=== PATIENT | male | born 1960 | race Two or more races ===

== ENCOUNTER 2020-11-25 09:32 | Outpatient (REF) | payer MEDICARE, MEDICAID, SELFPAY ==
--- NOTE | ~2020-11-25 | XR_ITS ---
EXAMINATION: XR SHOULDER, RIGHT CLINICAL INFORMATION: Pain. COMPARISON: Right shoulder MRI dated 08/16/2020. TECHNIQUE: AP, Grashey, and axillary views of the right shoulder. FINDINGS: Moderate acromioclavicular osteoarthritis. No significant glenohumeral joint space narrowing or marginal osteophytes. No osseous erosion. No fracture or dislocation. No abnormal soft tissue calcification. XR/XR shoulder RT min 2V IMPRESSION: Moderate acromioclavicular osteoarthritis, similar when compared to the prior MRI.
== END 2020-11-25 09:33 | disposition home or self-care (01) ==
LOC: HO.HOSX 09:32
PROVIDERS: Visit Provider Orthopaedic Surgery
DX: M25.511 Pain in right shoulder (principal)
CPT/HCPCS: 73030

== ENCOUNTER → 2020-11-28 13:03 | Outpatient (BNVA) | payer MEDICARE, MEDICAID, SELFPAY | PROVIDERS: Visit Provider Orthopaedic Surgery | DX: M75.101 Unspecified rotator cuff tear or rupture of right shoulder, not specified as traumatic (principal); E78.00 Pure hypercholesterolemia, unspecified; Z91.013 Allergy to seafood | CPT/HCPCS: 99202 ==

== ENCOUNTER 2020-12-25 06:03 | Day surgery (SDC) | payer MEDICARE, MEDICAID, SELFPAY ==
[2020-12-18 10:15] VITALS: BMI 28.7
--- NOTE | 2020-12-24 08:12 | HO.ANESPROP2 ---
Documented by User: Jacklyn Weinberg 12/24/20 08:15 HPI - Anesthesia Eval Consult details Narrative: 60yo F for Right Arthroscopic Rotator Cuff Repair PMFSH Past Medical History Medical History Anxiety Asthma COVID-19 vaccine series completed GERD (gastroesophageal reflux disease) High cholesterol HTN (hypertension) Low back pain Prediabetes Smoker Surgical History Surgical History Hx of colonoscopy Social History Social History (Updated 12/25/20 @ 08:01 by Deborah Niño) Alcohol intake: current Alcohol intake frequency: does not drink Patient Tobacco Use Status: Current everyday Tobacco user Tobacco use type: Cigarette Cigarettes Per Day: 5 Years Smoked: 50 Smoked in Last 30 Days: Yes Are you DNR?: No Advance Directives: No Advance Directives Information Provided: No Advance Directives on File: No Current occupational status: unemployed and disabled Current occupation: left handed Meds Allergies Allergy/AdvReac Type Severity Reaction Status Date / Time shellfish derived Allergy Anaphylaxis Verified 12/18/20 10:13 shrimp Allergy Anaphylaxis Verified 12/18/20 10:13 Home Medications Medication Instructions Recorded Confirmed Last Taken Type albuterol sulfate 90 mcg/actuation 1 puff INHALATION Q4-6H PRN 11/25/20 12/18/20 Unknown History aerosol inhaler atorvastatin 80 mg tablet 80 mg PO BEDTIME 11/25/20 12/18/20 12/25/20 History diclofenac sodium 1 % topical gel TOPICAL 11/25/20 Unknown History dulaglutide 0.75 mg/0.5 mL mg SUBCUT 11/25/20 Unknown History subcutaneous pen injector fluconazole 150 mg tablet mg PO 11/25/20 Unknown History hydroxyzine HCl 50 mg tablet mg PO 11/25/20 Unknown History ibuprofen 600 mg tablet mg PO 11/25/20 Unknown History lisinopril 40 mg tablet mg PO 11/25/20 12/25/20 History metformin 1,000 mg tablet 1,000 mg PO BID 11/25/20 12/18/20 12/25/20 History metoprolol succinate 50 mg 50 mg PO QAM 11/25/20 12/25/20 History tablet,extended release 24 hr naproxen 500 mg tablet 500 mg PO BID PRN 11/25/20 12/18/20 Unknown History omeprazole 20 mg capsule,delayed 20 mg PO DAILY 11/25/20 12/18/2021 History release tramadol 50 mg tablet 50 mg PO QID PRN 11/25/20 12/18/20 Unknown History Exam Exam Date and Time: December 24, 2020811 Height,Weight and Vital Signs: Height 5 ft 6 in Weight 80.739 kg Documented by User: Deborah Niño 12/25/20 08:03 COUNT INCLUDES THE [facility] Past Medical History Medical History Anxiety Asthma COVID-19 vaccine series completed GERD (gastroesophageal reflux disease) High cholesterol HTN (hypertension) Low back pain Prediabetes Smoker Family History Family history of problems with anesthesia: No Surgical History Surgical History Hx of colonoscopy History of Problems with Anesthesia: No Social History Social History (Updated 12/25/20 @ 08:01 by Deborah Niño) Alcohol intake: current Alcohol intake frequency: does not drink Patient Tobacco Use Status: Current everyday Tobacco user Tobacco use type: Cigarette Cigarettes Per Day: 5 Years Smoked: 50 Smoked in Last 30 Days: Yes Are you DNR?: No Advance Directives: No Advance Directives Information Provided: No Advance Directives on File: No Current occupational status: unemployed and disabled Current occupation: left handed Meds Allergies Allergy/AdvReac Type Severity Reaction Status Date / Time shellfish derived Allergy Anaphylaxis Verified 12/18/20 10:13 shrimp Allergy Anaphylaxis Verified 12/18/20 10:13 Home Medications Medication Instructions Recorded Confirmed Last Taken Type albuterol sulfate 90 mcg/actuation 1 puff INHALATION Q4-6H PRN 11/25/20 12/18/20 Unknown History aerosol inhaler atorvastatin 80 mg tablet 80 mg PO BEDTIME 11/25/20 12/18/20 12/25/20 History diclofenac sodium 1 % topical gel TOPICAL 11/25/20 Unknown History dulaglutide 0.75 mg/0.5 mL mg SUBCUT 11/25/20 Unknown History subcutaneous pen injector fluconazole 150 mg tablet mg PO 11/25/20 Unknown History hydroxyzine HCl 50 mg tablet mg PO 11/25/20 Unknown History ibuprofen 600 mg tablet mg PO 11/25/20 Unknown History lisinopril 40 mg tablet mg PO 11/25/20 12/25/20 History metformin 1,000 mg tablet 1,000 mg PO BID 11/25/20 12/18/20 12/25/20 History metoprolol succinate 50 mg 50 mg PO QAM 11/25/20 12/25/20 History tablet,extended release 24 hr naproxen 500 mg tablet 500 mg PO BID PRN 11/25/20 12/18/20 Unknown History omeprazole 20 mg capsule,delayed 20 mg PO DAILY 11/25/20 12/18/20 12/25/20 History release tramadol 50 mg tablet 50 mg PO QID PRN 11/25/20 12/18/20 Unknown History Exam Height,Weight and Vital Signs: Vital Signs Temp Pulse Resp BP Pulse Ox 12/25/20 06:29 97.4 F 73 18 138/75 97 Pertinent Lab Results Pertinent Lab Results: Lab Results 12/25/20 Range/Units 06:35 POC Glucose 136 H (60-115) mg/dL Narrative Narrative: Hyperesthesia right shoulder Airway Mallampati Class: II TM Dist: >3cm Neck ROM: Full Loose/Missing/Broken Teeth: Yes (Missing back) Heart: RRR Lungs: CTAB Assessment and Plan Assessment Anesthesia Assessment: Anesthesia Plan Discussed and Chart Reviewed Final Anesthetic Review NPO: Yes ASA Class: II Final Preanesthetic Review: No Changes in Pt Med Stat, Meds/Allgs Chart Reviewed, Consent Obtained/Reviewed and Anes Risks/Benef Reviewed Patient Risk: Low Procedure Risk: Intermediate Assessment/Block/Sedation in SS: Assess/Block/Sedation-SS Anesthetic Plan Anesthetic Plan: GA and Regional Block (Interscalene) Disposition: Standard PACU
[2020-12-25] VITALS (10 sets, daily range): BP systolic 90–138; BP diastolic 38–75; PULSE 64–75; RESP 14–20; TEMP 36.1–36.3; O2SAT 92–98
[2020-12-25 06:39] LABS: Glucose, Whole Blood 136 mg/dL (60-115)
[2020-12-25] MEDS: Lactated Ringers 1,000 ML 100 ML IVCONT (06:47)
--- NOTE | 2020-12-25 07:23 | MHC.SHP ---
Pre-Procedural Eval Section A The patient is an INPATIENT: No Changes since office visit: Yes Patient answered all questions; No Cold of Flu in the past 2 weeks, No New Medical Problems and No Changes in Medication The History & Physical has been completed within 30 days and I have reviewed it.: Yes Section B Chief Complaint: rotator cuff tear Allergies: Allergies Allergy/AdvReac Type Severity Reaction Status Date / Time shellfish derived Allergy Anaphylaxis Verified 12/18/20 10:13 shrimp Allergy Anaphylaxis Verified 12/18/20 10:13 Plan I have reviewed the history and physical and performed a pertinent physical examination on my patient. No changes have occurred unless specified.
--- NOTE | 2020-12-25 10:25 | PM.OP ---
Brief Operative Note Date of Service: 12/25/20 Pre-op diagnosis: right rtc tear Post-op diagnosis: same Procedure: right rtc repair Implants: lozada and nephew halcoil double loaded suture anchor x 2 and helacoil knotless x2 Surgeon: Lucien Burnett MD Anesthesia: GLMA and regional Was an Laborer Brooder Farm used for this Procedure?: Yes Laborer Brooder Farm: Tennille Rivera Estimated blood loss (mL): 10 IV fluids (mL): 1,100 Pathology: none sent Condition: stable Disposition: PACU
[2020-12-25] MEDS: ondansetron HCL 4 MG/2 ML VIAL IVPUSH (11:22)
--- NOTE | 2020-12-26 16:53 | W.PM.OPN ---
Operative Note Operative Note Date of Service: 12/25/20 Narrative: Pre-op diagnosis: right rtc tear Post-op diagnosis: same Procedure: right rtc repair Implants: lozada and nephew halcoil double loaded suture anchor x 2 and helacoil knotless x2 Surgeon: Lucien Burnett MD Anesthesia: GLMA and regional Was an Data Processing Operator used for this Procedure?: Yes Data Processing Operator: Tennille Rivera Estimated blood loss (mL): 10 IV fluids (mL): 1,100 Pathology: none sent Condition: stable Disposition: PACU Patient was brought to the operating room and placed in the beach chair position on the surgical table. He was prepped and draped in standard sterile fashion and a time out was called to indentify proper site, proper procedure and IV antibiotics per weight were administered. I began by making a posterolateral stab incision with a 15 blade. A blunt trochar was placed into the glenohumeral joint and I insufflated the joint with saline and a 30 degree arthroscope was placed. I established an outside- in anterior portal just distal to the biceps tendon. I then began my inspection of the glenohumeral joint. The cartilage surfaces were clean. The biceps anchor and labrum was also pristine and the inferior gutter was clean. There was a visible undersurface rotator tear. I established an outside in anterior portal just distal to the biceps tendon and used a probe here. I then removed the trochar and entered the subacromial space. A direct lateral portal was then established and I performed a bursectomy. The cuff was then examined. There was a full-thickness tear of the supraspinatus involving the anterior fibers of the infraspinatus. A 2 lateral portals were established under direct visualization and 2 medial row Healicoil anchors were placed and then these were fed through the rotator cuff with the scorpion and using Crossbridge technique loaded into 2 knotless suture anchors laterally. Prior to this I eburnated the footprint down to bleeding bone. I had excellent compression of the cuff and I was happy with the repair. A 5 mm subacromial decompression was then performed. Once I was happy with the final photographs all instrumentation was removed and portals were closed with nylon. Patient was placed in sterile dressing extubated brought to recovery room stable condition there were no known complications.
== END 2020-12-25 13:55 | disposition home or self-care (01) ==
PROVIDERS: Visit Provider Orthopaedic Surgery
PROC: (CPT 29827; principal; 2020-12-25 07:30)
DX: M75.121 Complete rotator cuff tear or rupture of right shoulder, not specified as traumatic (principal); J45.909 Unspecified asthma, uncomplicated; I10 Essential (primary) hypertension; R73.03 Prediabetes; Z79.84 Long term (current) use of oral hypoglycemic drugs; Z79.899 Other long term (current) drug therapy; F17.210 Nicotine dependence, cigarettes, uncomplicated
CPT/HCPCS: 29827; 29826; 82947; C1713; J0171; J0690; J1100; J2250; J2405; J3010

== ENCOUNTER 2020-12-27 10:28 | Emergency (ER) | payer MEDICARE, MEDICAID, SELFPAY ==
[2020-12-27 10:30] VITALS: BP 151/86; PULSE 81; RESP 17; TEMP 36.6; O2SAT 98; BMI 28.8
--- NOTE | 2020-12-27 10:38 | ED.WOUNDLAC ---
HPI - Wound/Laceration General Chief Complaint: Wound/Laceration Stated Complaint: dressing change Time Seen by Provider: 12/27/20 10:34 Source: patient Mode of arrival: ambulatory Limitations: no limitations History of Present Illness HPI narrative: 60 y/o presents to the ER from home on POD#2 from a right rotator cuff repair by Dr. Burnett requesting a dressing change. He states there is blood dressing under the surgical foam and it wants it changed. He is afraid of it getting infected. He reports ongoing severe pain in his shoulder since the surgery. He is due to see Dr. Burnett in 2 weeks. He did not call the office today with his dressing concerns. He denies fevers. Onset (ago): day(s) (2) Extremity Location: right: shoulder Patient tetanus UTD: Yes Context: other (recent surgery) Associated symptoms: pain Treatments prior to arrival: bandage Related Data Home Medications Medication Instructions Recorded Confirmed albuterol sulfate 90 mcg/actuation 1 puff INHALATION Q4-6H PRN 11/25/20 12/18/20 aerosol inhaler atorvastatin 80 mg tablet 80 mg PO BEDTIME 11/25/20 12/18/20 diclofenac sodium 1 % topical gel TOPICAL 11/25/20 dulaglutide 0.75 mg/0.5 mL mg SUBCUT 11/25/20 subcutaneous pen injector fluconazole 150 mg tablet mg PO 11/25/20 hydroxyzine HCl 50 mg tablet mg PO 11/25/20 lisinopril 40 mg tablet mg PO 11/25/20 metformin 1,000 mg tablet 1,000 mg PO BID 11/25/20 12/18/20 metoprolol succinate 50 mg 50 mg PO QAM 11/25/20 tablet,extended release 24 hr naproxen 500 mg tablet 500 mg PO BID PRN 11/25/20 12/18/20 omeprazole 20 mg capsule,delayed 20 mg PO DAILY 11/25/20 12/18/20 release Previous Rx's Medication Instructions Recorded oxycodone [OxyContin] 10 mg PO Q12H 3 Days #6 tab 12/25/20 oxycodone [OxyContin] 10 mg PO Q12H 3 Days #6 tab 12/25/20 oxycodone-acetaminophen [Percocet] 1 tab PO Q4-6H PRN #42 tab 12/25/20 oxycodone-acetaminophen [Percocet] 1 tab PO Q6H PRN 7 Days #42 tab 12/25/20 Allergies Allergy/AdvReac Type Severity Reaction Status Date / Time shellfish derived Allergy Anaphylaxis Verified 12/18/20 10:13 shrimp Allergy Anaphylaxis Verified 12/18/20 10:13 Review of Systems Review of Systems: Constitutional: No Fever, No Chills Gastrointestinal: No Nausea, No Vomiting Musculoskeletal: + joint pain, + Myalgias Skin: No Skin Lesions, No rash Neuro: No Weakness, No Numbness Heme/Lymph: + Bruising, No Lymphadenopathy PMFSH Past Medical History Attestation statement: The following information was validated with the patient. Medical History Anxiety Asthma COVID-19 vaccine series completed GERD (gastroesophageal reflux disease) High cholesterol HTN (hypertension) Low back pain Prediabetes Smoker Surgical History Hx of colonoscopy Social History Social History (Updated 12/25/20 @ 08:01 by Deborah Niño) Alcohol intake: current Alcohol intake frequency: does not drink Patient Tobacco Use Status: Current everyday Tobacco user Tobacco use type: Cigarette Cigarettes Per Day: 5 Years Smoked: 50 Current occupational status: unemployed and disabled Current occupation: left handed Physical Exam Vital Signs: Vital Signs: Last Vital Signs Temp 98 F 12/27/20 10:30 Pulse 81 12/27/20 10:30 Resp 17 12/27/20 10:30 BP 151/86 H 12/27/20 10:30 Pulse Ox 98 12/27/20 10:30 Body Mass Index 28.8 Appearance: Alert. Oriented X3. No acute distress. HEENT: normal inspection CVS: Normal heart rate and rhythm. Pulses normal. Respiratory: No respiratory distress. Skin: Skin warm and dry. Normal skin color. Normal skin turgor. No rashes. Extremities: right shoulder with 3 large strips of post-op surgical foam dressing covering anterior, superior and posterior portions, anterior portion is slightly loose and under the foam is blood soaked gauze, no purulent drainage. ecchymosis of anterior shoulder and right axillary area. NV intact distally Neuro: Oriented X 3. No motor deficit. No sensory deficit. Course Course Course Narrative: 60 y/o male POD 2 from rotattor cuff repair presenting for dressing change. Spoke with KLARISSA Null in the clinic who would like to see the patient in the office for dressing change as they have all of the specialized supplies for this. Patient instructed to go to [address] directly from here. Stable for d/c to ortho clinic Discharge Plan Discharge Clinical Impression: Change of dressing Patient Disposition: Home, Self-Care Additional Instructions: Go to [address] to the Orthopedic Clinic for a dressing change, they have all the supplies there and are expecting you Prescriptions: No Action oxycodone [OxyContin] 10 mg tablet,oral only,ext.rel.12 hr 10 mg PO Q12H 3 Days Qty: 6 RF: 0 oxycodone-acetaminophen [Percocet] 5-325 mg tablet 1 tab PO Q6H PRN (Reason: pain) 7 Days Qty: 42 RF: 0 oxycodone [OxyContin] 10 mg tablet,oral only,ext.rel.12 hr 10 mg PO Q12H 3 Days Qty: 6 RF: 0 oxycodone-acetaminophen [Percocet] 5-325 mg tablet 1 tab PO Q4-6H PRN (Reason: pain) Qty: 42 RF: 0 dulaglutide 0.75 mg/0.5 mL pen injector subcut RF: 0 fluconazole 150 mg tablet PO RF: 0 naproxen 500 mg tablet 500 mg PO BID PRN (Reason: Pain) RF: 0 albuterol sulfate 90 mcg/actuation HFA aerosol inhaler 1 puff inhalation Q4-6H PRN (Reason: Shortness Of Breath Or Wheezing) RF: 0 metformin 1,000 mg tablet 1,000 mg PO BID RF: 0 atorvastatin 80 mg tablet 80 mg PO BEDTIME RF: 0 metoprolol succinate 50 mg tablet extended release 24 hr 50 mg PO QAM RF: 0 lisinopril 40 mg tablet PO RF: 0 omeprazole 20 mg capsule,delayed release(DR/EC) 20 mg PO DAILY RF: 0 hydroxyzine HCl 50 mg tablet PO RF: 0 diclofenac sodium 1 % gel topical RF: 0 Interventions: ED Discharge Assessment Last Done: 12/27/20 11:00 Discharge Date/Time: 12/27/20 11:03
== END 2020-12-27 11:03 | disposition home or self-care (01) ==
PROVIDERS: Emergency Provider Emergency Medicine
DX: Z48.01 Encounter for change or removal of surgical wound dressing (principal)
CPT/HCPCS: 99212; 99283

== ENCOUNTER → 2020-12-30 13:56 | Outpatient (BNVA) | payer MEDICARE, MEDICAID, SELFPAY | PROVIDERS: Visit Provider Physician Assistant | DX: Z47.89 Encounter for other orthopedic aftercare (principal); Z98.890 Other specified postprocedural states | CPT/HCPCS: 99212 ==

== ENCOUNTER → 2021-01-08 09:23 | Outpatient (BNVA) | payer MEDICARE, MEDICAID, SELFPAY | PROVIDERS: PCP Physician Assistant; Visit Provider Physician Assistant | DX: Z98.890 Other specified postprocedural states (principal) | CPT/HCPCS: 99212 ==

== ENCOUNTER 2021-01-24 08:17 | Outpatient (RCR) | payer MEDICARE, MEDICAID, SELFPAY ==
--- NOTE | 2021-01-24 13:54 | MHC.PT.EP ---
[facility] [place] Office [place] Office [place] Office [address] Kendrick Morris [address] [phone] F: [phone] F: [phone] F: [phone] F: [phone] Physical Therapy Plan of Care Date of Evaluation: Date of Surgery: 12/26/20 Diagnosis: R RTC repair - supraspinatus and infraspinatus, R SAD Assessment: pt presents post-operatively w/ full thickness supraspinatus and infraspinatus repair as well as concomitant R SAD. He presents w/ pain reactions inconsistent w/ pressure applied during palpation indicating potential allodynia response. He had poor tolerance of passive range of motion and required extensive education regarding purpose, role, and importance of adhering to physical therapy recommendations and protocol precautions. pt presents to physical therapy with pain, decreased range of motion, decreased strength, impaired functional mobility, impaired postural awareness. pt is a fair candidate for skilled PT due to age, potential remediation of impairments, typical disease/condition progression and prognosis, comorbidities, and motivation. pt would benefit from tailored strengthening and stretching exercise program, functional training, postural re-training, neuromuscular re-education, modalities as needed for pain, equipment safety demonstration. Frequency and Duration: The patient will be seen 2x/wk for 12 wks Short Term Goals: pt will be I w/ HEP to promote self-management of condition. pt will be I w/ donning/doffing sling while maintaining protocol precautions. Intermediate Goals: pt will demo 75% full PROM to promote shoulder extensibility and progress protocol. pt will improve R shoulder strength to 3/10 in all planes to promote transition to functional movements. Treatment Plan: Modalities to reduce pain, spasms and effusion. Manual therapy to restore motion and function. Therapeutic exercise to improve strength and flexibility. Neuromuscular re-education for posture and balance. Therapeutic activities to return to functional activities of daily living. Electronically signed by: Linda Zelaya PT, DPT Please sign and return to therapist. Thank you for your referral.
--- NOTE | 2021-02-12 18:00 | MHC.PT.DC ---
[facility] [place] Office [place] Office [place] Office [address] Kendrick Morris [address] [phone] F: [phone] F: [phone] F: [phone] F: [phone] Physical Therapy Discharge Report Diagnosis: R RTC repair - supraspinatus and infraspinatus, R SAD Date of Surgery: 12/26/20 Date of Evaluation: 01/24/21 Date of Discharge: 02/12/21 Treatments to Date: 1 Cancellations to Date: 1 No Shows to Date: 3 Discharge Status: Visit Non-compliance Discharge Summary: The patient has not attended any scheduled visits since his initial evaluation. He presented with pain reactions inconsistent with pressure applied during palpation indicating potential allodynia response. He had poor tolerance of passive range of motion and required extensive education regarding purpose, role, and importance of adhering to physical therapy recommendations and protocol precautions. He is discharged from this physical therapy plan of care due to visit non-compliance. Electronically signed by: Linda Zelaya PT, DPT Please sign and return to therapist. Thank you for your referral.
== END 2021-02-12 18:01 | disposition home or self-care (01) ==
LOC: HO.PT 08:17
PROVIDERS: Visit Provider Orthopaedic Surgery
DX: Z98.890 Other specified postprocedural states (principal)
CPT/HCPCS: 97110; 97161; 97162

== ENCOUNTER → 2021-02-21 12:40 | Outpatient (BNVA) | payer MEDICARE, MEDICAID, SELFPAY | PROVIDERS: Visit Provider Orthopaedic Surgery | DX: Z47.89 Encounter for other orthopedic aftercare (principal) | CPT/HCPCS: 99212 ==